=== PATIENT | male | born 1990 | race Caucasian/White ===

== ENCOUNTER → 2017-10-18 | Outpatient (CLI) | payer OTHER ==
[2017-10-18 14:23] LABS: Specimen Source U
[2017-10-19 12:08] LABS: Source U
== END ==
LOC: LAB 14:20
PROVIDERS: Physician Assistant Medical
DX: R42 Dizziness and giddiness (principal)
CPT/HCPCS: 87086; 87491; 87591

== ENCOUNTER 2019-04-29 22:21 | Emergency (ER) | payer OTHER ==
[~2019-04-29] VITALS: Ht 188 cm; Wt 86.2 kg
[2019-04-30] MEDS ORDERED: Colace100 MG PO (00:41)
[2019-04-30] MEDS ORDERED: HYDACE25S PR (00:41)
== END 2019-04-30 00:53 | disposition home or self-care (01) ==
LOC: ER 22:21
DX: K64.4 Residual hemorrhoidal skin tags (principal); Z88.8 Allergy status to other drugs, medicaments and biological substances; F17.200 Nicotine dependence, unspecified, uncomplicated
CPT/HCPCS: 99282

== ENCOUNTER 2023-11-05 11:04 | Emergency (ER) | payer OTHER ==
[~2023-11-05] VITALS: Ht 190.5 cm; Wt 81.7 kg
[~2023-11-05 11:04] MED LIST: Colace100 MG PO; HYDACE25S PR
[2023-11-05 11:08] VITALS: BP 142/82
== END 2023-11-05 12:29 | disposition home or self-care (01) ==
LOC: ER 11:04
DX: S93.602A Unspecified sprain of left foot, initial encounter (principal); F17.200 Nicotine dependence, unspecified, uncomplicated; Z88.8 Allergy status to other drugs, medicaments and biological substances; X58.XXXA Exposure to other specified factors, initial encounter
CPT/HCPCS: 73630; 99283-25